=== PATIENT | female | born 1985 | race Caucasian/White ===

== ENCOUNTER 2025-07-01 17:32 | Emergency (ER) | payer BC, SELFPAY ==
[2025-07-01 17:32] VITALS: BMI 28.6
[2025-07-01 17:36] VITALS: BP 199/68
[2025-07-01 18:35] VITALS: BP 106/64
[2025-07-01] MEDS: NSS 500 IV (19:38)
[2025-07-01] MEDS: TORADOL 15 MG IV (19:38)
[2025-07-01] MEDS: BENADRYL 12.5 MG IV (19:39)
[2025-07-01 19:52] LABS: Hematocrit 33.5 % (37.0-47.0); Hemoglobin 10.9 g/dL (12.0-16.0); Mean Corp Hgb Conc. 32.5 g/dL (33.0-37.0); Mean Corpuscular Volume 89.1 fL (81.0-99.0); Nucleated Red Blood Cells % 0 %; Platelet Count 246 10^3/uL (130-400); Red Cell Dist. Width 13.6 % (11.5-14.5)
[2025-07-01 20:00] VITALS: BP 102/56
--- NOTE | 2025-07-01 20:00 | ED.GENMED ---
History of Present Illness
General
Chief Complaint: Headache
Source: patient
Exam Limitations: none
Time Seen by Provider: 07/01/25 18:31
Nursing documentation reviewed up to this point in time: agreed with
History of Present Illness
History of Present Illness:
Patient with history of migraine headache, on Nurtec and Fioricet, presents ED secondary to persistent headache over the past 1 week despite taking her medications. In addition, over the past 2 days, patient has noted left facial tingling
sensation. Patient was advised to come to ED for an evaluation by her primary care physician. Denies nausea or vomiting. Denies photophobia. Denies weakness. Denies difficulty with ambulation. Denies difficulty with speech or swallowing.
Patient states that her headache is similar to what she has in the past, which is primarily on the left side of her head. Patient has never received any imaging studies of her brain since onset of her headache. There is no family history of
migraine headache.
Review of Systems
Review of Systems
Allergies reviewed?: Yes
All Other Systems: ROS reviewed and negative except as documented in HPI and ROS
Constitutional: Reports no symptoms; Denies fever or chills
Respiratory: Reports no symptoms
Cardiac: Reports no symptoms
ABD/GI: Reports no symptoms; Denies nausea or vomiting
Musculoskeletal: Reports no symptoms
Skin: Reports no symptoms
Neurological: Reports headache and numbness; Denies weakness
Phy Exam
Physical Exam
Physical Exam:
Physical Exam
General: mild distress, not acutely ill. afebrile
Head: nc/at. eomi
Neck: supple. normal range of motion.
Heart: s1/s2 regular rate and rhythm
Lungs: no acute respiratory distress. clear bilaterally
Abdomen: normal bowel sounds. not tender.
Neuro: alert and oriented x 3. no focal neurological deficits. normal speech. normal gait
Skin: no rash
Psychiatric: well kept. interactive and cooperative
Extremities: no edema. no calf tenderness
Course
Orders/Labs/Results
Orders:
Orders
07/01/25 18:54
CT Head W/o Iv Contrast Urgent
Comment:
Reason For Exam: headache with facial numbness
07/01/25 18:55
Diphenhydramine [Benadryl] 12.5 mg IV NOW STA
Ketorolac [Toradol] 15 mg IV NOW STA
Test Result ONCE
07/01/25 18:56
0.9% Sodium Chloride 500 ml [Nss] 500 ml IV BOLUS
07/01/25 19:35
Complete Blood Count/With Diff Urgent
Comprehensive Metabolic Panel Urgent
HCG, Serum Qualitative Screen Urgent
Magnesium Urgent
TSH Urgent
07/01/25 20:57
Urinalysis Reflex To Culture Urgent
Date Specimen was Collected: 07/01/25
Time Specimen was Collected: 20:56
Urine Microscopic Reflex Cult Urgent
Urine Culture Urgent
SILVESTRE Source: U
Specimen Description:
Date Specimen was Collected: 07/01/25
Time Specimen was Collected: 20:56
07/01/25 21:30
Dexamethasone Sod Phosphate [Decadron] 10 mg IV NOW STA
Sumatriptan Succinate [Imitrex] 6 mg SC NOW STA
Abnormal Lab Results
07/01/25 07/01/25
19:35 20:57
RBC 3.76 L 10^6/uL
(4.20-5.40)
Hgb 10.9 L g/dL
(12.0-16.0)
Hct 33.5 L %
(37.0-47.0)
MCHC 32.5 L g/dL
(33.0-37.0)
MPV 11.0 H fL
(7.4-10.4)
Absolute Monos (auto) 0.9 H 10^3/uL
(0.1-0.6)
Monocytes % 9.8 H %
(1.7-9.3)
AST 38 H U/L
(14-36)
ALT 46 H U/L
(0-35)
Leukocyte Esterase Rfl 1+ A
(Negative)
Urine Bacteria (Reflex) Moderate A
(Negative)
Urine Albumin (Reflex) 1+ A
(Neg - Trace)
07/01/25 19:35
07/01/25 19:35
Vital Signs
Initial and Last Documented VS:
Initial Vital Signs
Temp Pulse Resp BP Pulse Ox
98.5 F 84 16 199/68 98
07/01/25 17:36 07/01/25 17:36 07/01/25 17:36 07/01/25 17:36 07/01/25 17:36
Last Documented Vital Signs
Temp Pulse Resp BP Pulse Ox
98.5 F 70 16 101/56 99
07/01/25 20:00 07/01/25 21:49 07/01/25 21:49 07/01/25 21:49 07/01/25 21:49
MDM/Problems Addressed
MDM/Problems Addressed:
CT head report reviewed and discussed with patient. After treatment, patient reports significant improvement in her symptoms, including facial numbness. Patient otherwise remains afebrile, hemodynamically stable, and neurologically intact, at time
of discharge, with recommendation to follow-up with PCP/neurology for an outpatient consultation.
*Pulse Oximetry
SaO2: 100
Oxygen Mode of Delivery: Room air
Patient hypoxic: no
*Critical Care Note
Total Time (30-74mins, 75-104mins- exclusive of procedures): Not Applicable
ED Attending Note
-
Portions of this chart may have been created with voice recognition software.� Occasional wrong word or��sound alike� substitutions may have occurred due to the inherent limitations of voice recognition software.
Discharge Plan
Departure
Patient Disposition: Home (Routine Discharge)
Date of Disposition: 07/01/25
Time of Disposition: 22:27
Patient with high blood pressure during this ER visit?: Yes
Condition: Good
Discharge Problem:
Headache
Instructions: Headache, Adult (DC)
Referrals:
Jazzy Sutherland MD [Non-Admitting Privileges, Psychiatry]
Mian Means MD [Active, Neurology]
Ravinder Berkowitz CRNP [Family Provider, General]
Activity Restrictions/Additional Instructions:
As discussed, please follow-up with referral neurologist for further evaluation and treatment.
Interventions
Interventions:
*Risk Screen - Suicide Last Done: 07/01/25 17:36
*General Assessment Last Done: 07/01/25 17:36
*Neglect/Abuse Screening Last Done: 07/01/25 17:36
*ED- Fall Risk Assessment Last Done: 07/01/25 17:36
*ED COVID-19 Vaccine History Last Done: 07/01/25 17:36
*ED Influenza Vaccine History Last Done: 07/01/25 17:36
ED- Neurological Assessment Last Done: 07/01/25 18:33
Discharge Date and Time
Print Language: MONTSERRATIAN
[2025-07-01 20:07] LABS: HCG, Serum Qualitative Screen Negative
[2025-07-01 20:13] LABS: ALT (SGPT) 46 U/L (0-35); AST (SGOT) 38 U/L (14-36); Albumin 4.2 g/dl (3.5-5.0); Alkaline Phosphatase 99 U/L (38-126); Blood Urea Nitrogen 9 mg/dl (7-17); Calcium 9.2 mg/dl (8.4-10.2); Carbon Dioxide 27 mmol/L (22-30); Chloride 104 mmol/L (98-107); Estimated Creatinine Clearance 104 ml/min; Glucose 82 mg/dl (70-99); Magnesium 2.1 mg/dl (1.6-2.3); Potassium 4.0 mmol/L (3.5-5.1); Sodium 136 mmol/L (135-145); Total Protein 7.4 g/dl (6.3-8.2); eGFR > 60.00
[2025-07-01 20:41] LABS: TSH 1.47 uIU/ml (0.47-4.68)
[2025-07-01 21:04] LABS: Urine Character Clear (Clear)
[2025-07-01 21:14] LABS: Urine Red Blood Cell 0-2 /HPF (0-2); Urine Squamous Cell 26-30 /LPF (Few); Urine White Cell 0-2 /HPF (0-5)
[2025-07-01] MEDS: IMITREX 6 MG SC (21:40)
[2025-07-01] MEDS: DECADRON 10 MG IV (21:41)
[2025-07-01 21:49] VITALS: BP 101/56
== END 2025-07-01 22:30 | disposition home or self-care (01) ==
LOC: EMR 17:32
PROVIDERS: EMERGENCY PHYSICIAN Emergency Medicine; FAMILY PHYSICIAN Nurse Practitioner Primary Care
DX: R51.9 Headache, unspecified (principal); R03.0 Elevated blood-pressure reading, without diagnosis of hypertension
CPT/HCPCS: 99284; 96374; 96375 ×2; 96361 ×2; 96372; 70450; 80053; 81003; 81015; 83735; 84443; 84703; 85025; 87086